=== PATIENT | female | born 2005 | race Caucasian/White ===

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

== ENCOUNTER 2023-03-18 15:06 | Emergency (ER) | payer SELFPAY ==
[~2023-03-18] VITALS: Ht 165.1 cm; Wt 109.8 kg
[~2023-03-18 15:06] MED LIST changes: +ZITHROMAX250 MG PO
[2023-03-18] MEDS ORDERED: PENICILLIN VK500 MG PO (15:22)
[2023-03-18] MEDS ORDERED: Motrin,Rufen800 MG PO (15:22)
== END 2023-03-18 15:36 | disposition home or self-care (01) ==
LOC: ED 15:06
DX: S02.5XXA Fracture of tooth (traumatic), initial encounter for closed fracture (principal); K02.9 Dental caries, unspecified; K04.7 Periapical abscess without sinus; Z91.010 Allergy to peanuts; Z91.018 Allergy to other foods; X58.XXXA Exposure to other specified factors, initial encounter; Y93.89 Activity, other specified; Y92.89 Other specified places as the place of occurrence of the external cause; Y99.8 Other external cause status

== ENCOUNTER 2024-12-03 22:51 | Inpatient (IN) | payer SELFPAY ==
[~2024-12-03] VITALS: Ht 162.6 cm; Wt 94.5 kg
[~2024-12-03 22:51] MED LIST changes: +Motrin,Rufen800 MG PO; +PENICILLIN VK500 MG PO
[2024-12-03 23:01] VITALS: BP 139/80
[2024-12-03] MEDS ORDERED: IOHEXOL 300 MG/ML 100 ML VIAL IV ONE (23:15)
[2024-12-03 23:30] LABS: BASO # 0.0 10*3/uL (0.0-0.1); BASO % 0.3 % (0.0-1.0); EOS # 0.3 10*3/uL (0.0-0.4); EOS % 1.9 % (1.0-4.0); MEAN CELL VOLUME 90.0 fl (81.0-99.0); MEAN CORPUSCULAR HGB 29.4 pg (27.0-31.0); MEAN PLATELET VOLUME 10.0 fl (9.6-12.3); MONO # 1.2 10*3/uL (0.1-1.0); MONO % 7.7 % (3.0-9.0); NEUT # 10.0 10*3/uL (2.3-7.9); NEUT % 66.8 % (47.0-73.0); NUCLEATED RED BLOOD CELL 0.0 % (0.0-0.0); NUCLEATED RED BLOOD CELL 0.0 10*3/uL (0.0-0.0); PLATELET COUNT AUTOMATED 398 10*3/uL (130-400); RED CELL DISTRI WIDTH 13.1 % (0-14.5)
[2024-12-03 23:48] LABS: BUN 14 mg/dl (9-23)
[2024-12-04] MEDS ORDERED: IOHEXOL 300 MG/ML 100 ML VIAL ONE (00:13)
[2024-12-04] MEDS ORDERED: SODIUM CHLORIDE 0.9% 1,000 ML IV ONE (01:05)
[2024-12-04] MEDS ORDERED: LEVOTHYROXINE200 MC2 PO (01:21)
[2024-12-04] MEDS ORDERED: TEMAZEPAM 15 MG CAP PO PRN (01:55)
[2024-12-04] MEDS ORDERED: ACETAMINOPHEN 325 MG TAB PO PRN (01:55)
[2024-12-04] MEDS ORDERED: BISACODYL 5 MG TAB PO PRN (01:55)
[2024-12-04] MEDS ORDERED: Ondansetron Hydrochloride 4 MG/2 ML VIAL IV PRN (01:55)
[2024-12-04] MEDS ORDERED: ACETAMINOPHEN 650 MG SUPP R PRN (01:55)
[2024-12-04] MEDS ORDERED: Acetaminophen/Hydrocodone 5 MG/325 MG TABLET PO PRN (01:55)
[2024-12-04] MEDS ORDERED: BISACODYL 10 MG SUPP R PRN (01:55)
[2024-12-04] MEDS ORDERED: Dexamethasone Sodium Phospha 4 MG/ML VIAL IV SCH (02:40)
[2024-12-04 02:49] VITALS: BP 142/85
[2024-12-04] MEDS ORDERED: Ampicillin Sodium/Sulbactam 3 GM in SODIUM CHLORIDE 0.9% 100 ML IV SCH (03:00)
[2024-12-04 06:07] LABS: BUN 12 mg/dl (9-23); FREE T4 1.14 ng/dl (0.89-1.76); LDL CHOLESTEROL 67 mg/dL (9-159)
[2024-12-04 06:14] LABS: SGPT/ALT < 7 U/L (5-49)
[2024-12-04 06:15] LABS: ACT PARTIAL THROMBO TIME 28.6 SECONDS (20.0-32.1); BASO # 0.0 10*3/uL (0.0-0.1); BASO % 0.3 % (0.0-1.0); EOS # 0.2 10*3/uL (0.0-0.4); EOS % 1.6 % (1.0-4.0); MEAN CELL VOLUME 89.0 fl (81.0-99.0); MEAN CORPUSCULAR HGB 28.9 pg (27.0-31.0); MEAN PLATELET VOLUME 10.2 fl (9.6-12.3); MONO # 0.6 10*3/uL (0.1-1.0); MONO % 5.9 % (3.0-9.0); NEUT # 8.1 10*3/uL (2.3-7.9); NEUT % 77.1 % (47.0-73.0); NUCLEATED RED BLOOD CELL 0.0 % (0.0-0.0); NUCLEATED RED BLOOD CELL 0.0 10*3/uL (0.0-0.0); PLATELET COUNT AUTOMATED 312 10*3/uL (130-400); RED CELL DISTRI WIDTH 13.3 % (0-14.5)
[2024-12-04 06:54] LABS: VITAMIN D, 25-HYDROXY 28.4 ng/mL (30-100)
[2024-12-04] MEDS ORDERED: MAGNESIUM SULFATE 50 ML IV ONE (07:00)
[2024-12-04 08:00] VITALS: BP 134/80
[2024-12-04] MEDS ORDERED: AMPICILLIN SODIUM IV ONE (09:18)
[2024-12-04] MEDS ORDERED: SULBACTAM IV ONE (09:18)
[2024-12-04] MEDS ORDERED: Cholecalciferol 2,000 UNIT TABLET (50 MCG) PO SCH (10:00)
[2024-12-04 12:00] VITALS: BP 125/68
[2024-12-04 16:00] VITALS: BP 129/73
[2024-12-04 20:00] VITALS: BP 126/72
[2024-12-05] VITALS: BP 115/56
[2024-12-05 06:16] LABS: BASO # 0.0 10*3/uL (0.0-0.1); BASO % 0.2 % (0.0-1.0); EOS # 0.1 10*3/uL (0.0-0.4); EOS % 0.8 % (1.0-4.0); MEAN CELL VOLUME 89.2 fl (81.0-99.0); MEAN CORPUSCULAR HGB 29.6 pg (27.0-31.0); MEAN PLATELET VOLUME 10.4 fl (9.6-12.3); MONO # 1.1 10*3/uL (0.1-1.0); MONO % 8.2 % (3.0-9.0); NEUT # 9.3 10*3/uL (2.3-7.9); NEUT % 68.8 % (47.0-73.0); NUCLEATED RED BLOOD CELL 0.0 % (0.0-0.0); NUCLEATED RED BLOOD CELL 0.0 10*3/uL (0.0-0.0); PLATELET COUNT AUTOMATED 333 10*3/uL (130-400); RED CELL DISTRI WIDTH 13.3 % (0-14.5)
[2024-12-05 08:00] VITALS: BP 117/63
[2024-12-05 11:52] VITALS: BP 121/68
[2024-12-05 16:00] VITALS: BP 134/70
[2024-12-05] MEDS ORDERED: VANCOMYCIN HCL 1,250 MG in SODIUM CHLORIDE 0.9% 250 ML IV SCH (18:00)
[2024-12-05 20:00] VITALS: BP 120/73
[2024-12-06 01:30] VITALS: BP 125/72
[2024-12-06 06:07] LABS: BUN 10 mg/dl (9-23)
[2024-12-06 07:04] LABS: BASO # 0.0 10*3/uL (0.0-0.1); BASO % 0.4 % (0.0-1.0); EOS # 0.3 10*3/uL (0.0-0.4); EOS % 2.4 % (1.0-4.0); MEAN CELL VOLUME 91.9 fl (81.0-99.0); MEAN CORPUSCULAR HGB 29.2 pg (27.0-31.0); MEAN PLATELET VOLUME 9.9 fl (9.6-12.3); MONO # 0.9 10*3/uL (0.1-1.0); MONO % 8.5 % (3.0-9.0); NEUT # 7.2 10*3/uL (2.3-7.9); NEUT % 67.9 % (47.0-73.0); NUCLEATED RED BLOOD CELL 0.0 % (0.0-0.0); NUCLEATED RED BLOOD CELL 0.0 10*3/uL (0.0-0.0); PLATELET COUNT AUTOMATED 290 10*3/uL (130-400); RED CELL DISTRI WIDTH 13.2 % (0-14.5)
[2024-12-06 08:00] VITALS: BP 124/71
[2024-12-06 12:00] VITALS: BP 142/89
[2024-12-06] MEDS ORDERED: IOHEXOL 300 MG/ML 100 ML VIAL IV ONE (12:20)
[2024-12-06] MEDS ORDERED: IOHEXOL 300 MG/ML 100 ML VIAL ONE (12:43)
[2024-12-06] MEDS ORDERED: VANCOMYCIN HCL 1,250 MG in SODIUM CHLORIDE 0.9% 250 ML IV SCH (13:00)
[2024-12-06] MEDS ORDERED: VITAMIN D350 MCG PO (15:27)
[2024-12-06 16:00] VITALS: BP 116/64
== END 2024-12-06 20:30 | disposition short-term general hospital (02) | DRG 158 ==
LOC: ED 22:51 → 4E 12-04 01:29 → EDHOLD 12-04 01:29 → 4E 12-04 02:24 → 5E 12-04 06:40
PROVIDERS: Internal Medicine; Student in an Organized Health Care Education/Training Program; ADMIT Internal Medicine; ATTEND Internal Medicine
DX: K04.7 Periapical abscess without sinus (principal); E44.0 Moderate protein-calorie malnutrition; D72.829 Elevated white blood cell count, unspecified; D64.9 Anemia, unspecified; E03.9 Hypothyroidism, unspecified; F41.9 Anxiety disorder, unspecified; E87.8 Other disorders of electrolyte and fluid balance, not elsewhere classified; F17.210 Nicotine dependence, cigarettes, uncomplicated; R73.9 Hyperglycemia, unspecified; E83.42 Hypomagnesemia; M27.2 Inflammatory conditions of jaws; Z88.8 Allergy status to other drugs, medicaments and biological substances; Z91.018 Allergy to other foods; Z87.440 Personal history of urinary (tract) infections; Z82.49 Family history of ischemic heart disease and other diseases of the circulatory system; Z91.09 Other allergy status, other than to drugs and biological substances; Z68.35 Body mass index [BMI] 35.0-35.9, adult; Z71.6 Tobacco abuse counseling; Z79.899 Other long term (current) drug therapy; Z79.01 Long term (current) use of anticoagulants; Z79.2 Long term (current) use of antibiotics